=== PATIENT | male | born 1955 | race Caucasian/White ===

== ENCOUNTER → 2017-03-15 | Outpatient (CLI) | payer OTHER | LOC: CIMAGING 08:33 | PROVIDERS: ATTEND Thoracic Surgery (Cardiothoracic Vascular Surgery) | DX: Z01.810 Encounter for preprocedural cardiovascular examination (principal); I77.810 Thoracic aortic ectasia | CPT/HCPCS: 71250-PO ==

== ENCOUNTER 2017-04-07 13:07 | Day surgery (SDC) | payer OTHER ==
[2017-04-07] MEDS ORDERED: BENZOCAINE UNIT DOSE SPRAY HURRICAINE MM ONE (13:11)
[2017-04-07] MEDS ORDERED: MIDAZOLAM 2 MG/2 ML VIAL IVP ONE (13:11)
[2017-04-07] MEDS ORDERED: NS 500 ML IV ONE (13:11)
[2017-04-07] MEDS ORDERED: fentaNYL 100 MCG/2 ML INJ IVP ONE (13:11)
[2017-04-07 13:37] VITALS: BP 118/72; RESP 10; O2SAT 95
--- NOTE | 2017-04-07 14:24 | PDHPUP ---
History & Physical Update H&P update statement: This history and physical update is based on an assessment of the patient which was completed after admission or registration (within 24 hours), but prior to the surgery/procedure. H&P update: H&P reviewed & patient examined, no change in patient's condition since H&P completed
--- NOTE | 2017-04-07 14:24 | PDPROPOC ---
Sedation Plan of Care Sedation Plan of Care: vital signs stable, mental status noted, patient educated of risks, benefits, alternatives, patient can tolerate sedation ASA Classification: ASA 1 Planned drugs: fentanyl, midazolam Mallampati Score: Class 1 Mallampati Reference Image: Patient passed 3-3-2 rule?: Yes
== END 2017-04-07 16:40 | disposition home or self-care (01) ==
LOC: FCATH 13:07
PROVIDERS: ATTEND Internal Medicine Interventional Cardiology
PROC: B245ZZ4 Ultrasonography of Left Heart, Transesophageal (ICD-10-PCS; principal; 2017-04-07)
DX: I34.0 Nonrheumatic mitral (valve) insufficiency (principal); R01.1 Cardiac murmur, unspecified; Q24.8 Other specified congenital malformations of heart; I77.810 Thoracic aortic ectasia; I51.7 Cardiomegaly; I42.2 Other hypertrophic cardiomyopathy; K21.9 Gastro-esophageal reflux disease without esophagitis
CPT/HCPCS: J2250; J3010

== ENCOUNTER 2017-09-30 08:17 | Day surgery (SDC) | payer OTHER ==
[2017-09-30] MEDS ORDERED: FAMOTIDINE 20 MG TAB PO ONE (08:19)
[2017-09-30] MEDS ORDERED: ASPIRIN EC 325 MG TAB PO ONE ×2 (08:19→08:42)
[2017-09-30] MEDS ORDERED: DIAZEPAM 5 MG TAB PO ONE (08:19)
[2017-09-30] MEDS ORDERED: NS 1,000 ML IV ONE (08:19)
[2017-09-30] MEDS ORDERED: diphenhydrAMINE 25 MG CAP PO ONE ×2 (08:19→08:42)
[2017-09-30] MEDS ORDERED: FAMOTIDINE 20 MG TAB ONE (08:42)
[2017-09-30] MEDS ORDERED: DIAZEPAM 5 MG TAB ONE (08:43)
--- NOTE | 2017-09-30 08:53 | PDPROPOC ---
Sedation Plan of Care Sedation Plan of Care: vital signs stable, mental status noted, patient educated of risks, benefits, alternatives, patient can tolerate sedation ASA Classification: ASA 2 Planned drugs: fentanyl, midazolam Mallampati Score: Class 1 Mallampati Reference Image: Patient passed 3-3-2 rule?: Yes
--- NOTE | 2017-09-30 08:54 | CPEKG ---
Heart Rate: 49 RR Interval: 1224 P-R Interval: 228 QRSD Interval: 116 QT Interval: 440 QTC Interval: 398 P [place]: 38 QRS [place]: 83 T Wave [place]: -25 EKG Severity - ABNORMAL ECG - EKG Impression: SINUS BRADYCARDIA EKG Impression: FIRST DEGREE AV BLOCK EKG Impression: NONSPECIFIC INTRAVENTRICULAR CONDUCTION DELAY Electronically Signed By: Sergio Condon 30-Sep-2017 18:19:00
[2017-09-30 09:06] LABS: PLATELET COUNT 188 10^3/uL (150-400)
[2017-09-30 09:19] LABS: INR 1.01 (0.83-1.16); PROTIME(PATIENT) 13.5 SEC (12.0-15.0)
[2017-09-30] MEDS ORDERED: LIDOCAINE 1% 300 MG/30 ML SDV ONE (09:54)
[2017-09-30] MEDS ORDERED: HEPARIN 10,000 UNIT/10 ML MDV (1,000 UNIT/ML) ONE (09:55)
[2017-09-30] MEDS ORDERED: IOPAMIDOL (ISOVUE-370) 150 ML BTL IV ONE (09:55)
[2017-09-30] MEDS ORDERED: MIDAZOLAM 2 MG/2 ML VIAL ONE (09:55)
[2017-09-30] MEDS ORDERED: fentaNYL 100 MCG/2 ML INJ ONE (09:55)
[2017-09-30] MEDS ORDERED: VERAPAMIL 5 MG/2 ML VIAL ONE (09:55)
[2017-09-30] MEDS ORDERED: NITROGLYCERIN 0.4 MG BTL SL PRN (11:05)
[2017-09-30] MEDS ORDERED: ATROPINE SULFATE 1 MG/10 ML SYR IVP PRN (11:05)
[2017-09-30] MEDS ORDERED: ONDANSETRON 4 MG/2 ML VIAL IVP PRN (11:05)
--- NOTE | 2017-09-30 11:10 | PDDXCAT ---
Diagnostic Cath Note - . Date: 09/30/17 Bathing Suit Maker: Naman Indication: other (Severe mitral regurgitation awaiting surgery) - Procedure Access: right wrist Procedure: left heart catheterization, coronary angiography, left ventriculogram - Materials Left Heart Cath size: 4F Left Heart Cath materials: JL4.0, pigtail, Marcell's R - Findings-Left Heart Catheterization LM: Unobstructed LAD: Unobstructed LCX: Dominant: Unobstructed RCA: Non dominant: Unobstructed EDP: 15 mm of mercury. Pullback through the ventricle revealed 20 mm gradient from apex to base. LVEF: 60% Wall motion: Normal Complications: None: Anterior takeoff to the non dominant right coronary Closure method: TR Band Assessment: Angiographically normal coronary arteries. Normal LV systolic function. Normal left ventricular end-diastolic pressure. Patient Problems: Problems Problem Status Onset Mitral regurgitation Acute
== END 2017-09-30 14:20 | disposition home or self-care (01) ==
LOC: FCATH 08:17
PROVIDERS: ATTEND Internal Medicine Interventional Cardiology
PROC: B2151ZZ Fluoroscopy of Left Heart using Low Osmolar Contrast (ICD-10-PCS; principal; 2017-09-30)
PROC: B2111ZZ Fluoroscopy of Multiple Coronary Arteries using Low Osmolar Contrast (ICD-10-PCS; principal; 2017-09-30)
PROC: 4A023N7 Measurement of Cardiac Sampling and Pressure, Left Heart, Percutaneous Approach (ICD-10-PCS; principal; 2017-09-30)
DX: Z01.810 Encounter for preprocedural cardiovascular examination (principal); I34.0 Nonrheumatic mitral (valve) insufficiency
CPT/HCPCS: 93005; 93458; C1769; J1644; J2250; J3010; Q9967

== ENCOUNTER 2017-11-16 12:03 | Day surgery (SDC) | payer OTHER ==
[2017-11-16] MEDS ORDERED: BENZOCAINE UNIT DOSE SPRAY HURRICAINE MM ONE (12:08)
[2017-11-16] MEDS ORDERED: NS 500 ML IV ONE (12:08)
[2017-11-16] MEDS ORDERED: ATROPINE SULFATE 1 MG/10 ML SYR IVP ONE (12:08)
[2017-11-16] MEDS ORDERED: fentaNYL 100 MCG/2 ML INJ IVP ONE (12:08)
[2017-11-16] MEDS ORDERED: MIDAZOLAM 2 MG/2 ML VIAL IVP ONE (12:08)
[2017-11-16 13:06] LABS: INR 1.11 (0.83-1.16); PROTIME(PATIENT) 14.5 SEC (12.0-15.0)
[2017-11-16] MEDS ORDERED: PROPOFOL 200 MG/20 ML VIAL ONE ×2 (14:37→15:14)
[2017-11-16] MEDS ORDERED: MIDAZOLAM 2 MG/2 ML VIAL ONE (14:37)
--- NOTE | 2017-11-16 14:43 | PDANEPAE ---
ANE Past Medical History - Pulmonary History Hx Sleep Apnea: No ANE Review of Systems Review of Systems: ANE Patient History - Allergies Allergies/Adverse Reactions: No Known Allergies Allergy (Verified 09/23/17 09:27) - Home Medications Home Medications: Bimatoprost 0.01% [Lumigan 0.01% (*)] 1 drops EACHEYE HS 09/23/17 [Last Taken Unknown] Brimonidine 0.2% [ALPHAGAN 0.2% (RX)] 1 drops EACHEYE BID 09/23/17 [Last Taken Unknown] Brinzolamide 1% [Azopt 1%] 1 drops EACHEYE DAILY 09/23/17 [Last Taken 11/16/17 07:00] Aspirin 11/16/17 [Last Taken 11/16/17 07:00] Herbals/Supplements -Info Only 11/16/17 [Last Taken 11/16/17 07:00] Magnesium 11/16/17 [Last Taken 11/16/17 06:00] Multivitamin (*) 11/16/17 [Last Taken 11/16/17 07:00] Omeprazole 11/16/17 [Last Taken 11/16/17 07:00] - Smoking Hx Smoking Status: Never smoked ANE Labs/Vital Signs - Labs Result Diagrams: 11/16/17 12:40 - Vital Signs Height: 180.34 cm Weight: 93.894 kg ANE Physical Exam - Airway Neck exam: FROM Mallampati Score: Class 1 Mouth exam: normal dental/mouth exam - Pulmonary Pulmonary: no respiratory distress, no rales or rhonchi, reduced air movement - Cardiovascular Cardiovascular: irregularly irregular, tachycardia - ASA Status ASA Status: IV ANE Anesthesia Plan Anesthesia Plan: MAC
--- NOTE | 2017-11-16 15:39 | CPEKG ---
Heart Rate: 74 RR Interval: 811 P-R Interval: 220 QRSD Interval: 142 QT Interval: 444 QTC Interval: 493 P [place]: 25 QRS [place]: 35 T Wave [place]: 196 EKG Severity - ABNORMAL ECG - EKG Impression: SINUS RHYTHM EKG Impression: FIRST DEGREE AV BLOCK EKG Impression: Can't rule out old anterior myocardial infarction. EKG Impression: Left bundle branch block-- new since September 30, 2017 Electronically Signed By: Jeramy King 16-Nov-2017 16:55:04
[2017-11-16] MEDS ORDERED: NALOXONE HCL 0.4 MG/ML INJ IVP PRN (16:10)
--- NOTE | 2017-11-16 16:11 | POSTANESTH ---
Post Anesthetic Evaluation Cardiovascular Status: Normal, Stable, Tx Hyper/Hypo-tension Respiratory Status: Normal, Stable Level of Consciousness/Mental Status: Can Participate in Eval Pain Control: Adequate, Prn Tx Ordered Nausea/Vomiting Control: Adequate, Prn Tx Ordered Complications Possibly Related to Anesthesia: None Noted
[2017-11-16] MEDS ORDERED: APIXABAN 5 MG TAB PO SCH (17:00)
--- NOTE | 2017-11-16 17:12 | CPIP ---
[f rep st] INVASIVE CARDIAC PROCEDURE DATE OF PROCEDURE: 11/16/2017 PROCEDURE: Transesophageal echocardiogram and cardioversion. INDICATION: Atrial flutter. CONSENT: Signed and in front of chart. ANTICOAGULATION: Patient was started on anticoagulation the day of procedure with Eliquis. SPECIFICS: 1. ROSLYN was performed. No evidence of thrombus within the left atrium or left atrial appendage was i dentified. 2. Pads were placed in anterior and posterior position. 3. 200 joules synchronized was delivered x1 with uatsdin of normal sinus rhythm. ANESTHESIA: Please see anesthesia report. TRANSESOPHAGEAL ECHOCARDIOGRAM: Please see ROSLYN report. COMPLICATIONS: None. CONCLUSIONS: Status post successful ROSLYN and cardioversion. /[id number]/MODL
== END 2017-11-16 17:10 | disposition home or self-care (01) ==
LOC: FCATH 12:03
PROVIDERS: ATTEND Internal Medicine Cardiovascular Disease
DX: I48.92 Unspecified atrial flutter (principal)
CPT/HCPCS: J2250; J2704